=== PATIENT | female | born 1980 | race American Indian/Alaskan Native ===

== ENCOUNTER 2017-03-18 08:21 | Emergency (ER) | payer MEDICAID ==
[2017-03-18] MEDS ORDERED: ROCEPHIN IM ONE (10:02)
[2017-03-18] MEDS ORDERED: ZITHROMAX PO ONE (10:02)
[2017-03-18] MEDS ORDERED: XYLOCAINE 1% MPF 5 mL INFILTRATI ONE (10:02)
--- NOTE | 2017-03-18 10:06 | Emergency Department Report ---
ED Female HPI - General Chief complaint: Urogenital-Female Stated complaint: CHECK FOR STD Time Seen by Provider: 03/18/17 10:02 Source: patient Mode of arrival: Ambulatory Limitations: No Limitations - History of Present Illness Initial comments: Patient is a 37-year-old [place] female who presents for STD exposure requesting prophylactic treatment for same patient denies symptoms at this time , states Homer positive for GC last unprotected sex 3 days ago last menstrual period 3 weeks ago. - Related Data Previous Rx's Medication Instructions Recorded Last Taken Type metroNIDAZOLE [Flagyl] 500 mg PO Q12HR #14 tab 03/18/17 Unknown Rx Allergies Allergy/AdvReac Type Severity Reaction Status Date / Time No Known Allergies Allergy Unverified 03/18/17 08:32 ED Review of Systems ROS: Stated complaint: CHECK FOR STD Other details as noted in HPI Constitutional: denies: chills, fever Eyes: denies: eye pain, eye discharge, vision change ENT: denies: ear pain, throat pain Respiratory: denies: cough, shortness of breath, wheezing Cardiovascular: denies: chest pain, palpitations Endocrine: no symptoms reported Gastrointestinal: denies: abdominal pain, nausea, diarrhea Genitourinary: denies: urgency, dysuria, discharge Musculoskeletal: denies: back pain, joint swelling, arthralgia Skin: denies: rash, lesions Neurological: denies: headache, weakness, paresthesias Psychiatric: denies: anxiety, depression Hematological/Lymphatic: denies: easy bleeding, easy bruising ED Past Medical Hx - Past Medical History Previous Medical History?: No - Surgical History Past Surgical History?: Yes Additional Surgical History: x 1, Right knee arthroscopy - Social History Smoking Status: Current Some Day Smoker Substance Use Type: Alcohol, Marijuana - Medications Home Medications: Home Medications Medication Instructions Recorded Confirmed Last Taken Type metroNIDAZOLE [Flagyl] 500 mg PO Q12HR #14 tab 03/18/17 Unknown Rx ED Physical Exam - General Limitations: No Limitations General appearance: alert, in no apparent distress - Head Head exam: Present: atraumatic, normocephalic - Eye Eye exam: Present: normal appearance - ENT ENT exam: Present: mucous membranes moist - Neck Neck exam: Present: normal inspection - Respiratory Respiratory exam: Present: normal lung sounds bilaterally. Absent: respiratory distress - Cardiovascular Cardiovascular Exam: Present: regular rate, normal rhythm. Absent: systolic murmur, diastolic murmur, rubs, gallop - GI/Abdominal GI/Abdominal exam: Present: soft, normal bowel sounds - Rectal Rectal exam: Present: deferred - Extremities Exam Extremities exam: Present: normal inspection - Back Exam Back exam: Present: normal inspection - Neurological Exam Neurological exam: Present: alert, oriented X3 - Psychiatric Psychiatric exam: Present: normal affect, normal mood - Skin Skin exam: Present: warm, dry, intact, normal color. Absent: rash ED Course Vital Signs 03/18/17 08:32 Temperature 98.8 F Pulse Rate 71 Respiratory 18 Rate Blood Pressure 115/75 O2 Sat by Pulse 99 Oximetry ED Medical Decision Making - Medical Decision Making Patient presents for STD exposure requesting prophylactic treatment for STD patient denies symptoms STD treatment provided patient will follow up with health department for HIV screening patient will follow with PCP as needed Critical care attestation.: If time is entered above; I have spent that time in minutes in the direct care of this critically ill patient, excluding procedure time. ED Disposition Clinical Impression: Exposure to STD Disposition: DC-01 TO HOME OR SELFCARE Is pt being admited?: No Does the pt Need Aspirin: No Condition: Good Instructions: Sexually Transmitted Diseases (ED) Prescriptions: metroNIDAZOLE [Flagyl] 500 mg PO Q12HR #14 tab Referrals: CHANCE BALDWIN MD [Primary Care Provider] - 3-5 Days Forms: Work/School Release Form(ED) Time of Disposition: 10:06
[2017-03-18 10:23] LABS: Bacteria,Urine 1+ /HPF (Negative); Bilirubin,Urine NEG (Negative); Blood,Urine NEG (Negative); Color,Urine Yellow (Yellow); Mucus,Urine 1+ /HPF; Nitrite,Urine NEG (Negative); Protein,Urine <15 mg/dL mg/dL (Negative); Urobilinogen,Urine < 2.0 mg/dL (<2.0)
[2017-03-18 10:26] LABS: HCG Qualitative,Urine Negative (Negative)
[2017-03-18 10:40] VITALS: BP 120/76
== END 2017-03-18 10:39 | disposition home or self-care (01) ==
LOC: ED 08:21
DX: Z20.2 Contact with and (suspected) exposure to infections with a predominantly sexual mode of transmission (principal); F12.10 Cannabis abuse, uncomplicated; F17.200 Nicotine dependence, unspecified, uncomplicated
CPT/HCPCS: 81001; 81025; 96372; 99283; J0696

== ENCOUNTER 2017-11-12 11:46 | Outpatient (CLI) | payer MEDICAID ==
[2017-11-12 12:15] VITALS: BP 110/59
[2017-11-12] MEDS ORDERED: LACTATED RINGERS 500 ML IV ONE (12:30)
[2017-11-12] MEDS ORDERED: NITRATEST PAPER MC NR (12:30)
== END 2017-11-12 13:34 | disposition home or self-care (01) ==
LOC: TRG 11:46
PROVIDERS: ATTEND Obstetrics & Gynecology
DX: O47.02 False labor before 37 completed weeks of gestation, second trimester (principal); Z3A.21 21 weeks gestation of pregnancy
CPT/HCPCS: 59025

== ENCOUNTER 2017-11-30 04:14 | Outpatient (CLI) | payer MEDICAID ==
[2017-11-30] MEDS ORDERED: LACTATED RINGERS 1,000 ML IV ONE (04:39)
[2017-11-30 06:33] LABS: Bilirubin,Urine NEG (Negative); Blood,Urine NEG (Negative); Calcium Oxalate Crystals,Urine 1+; Color,Urine Yellow (Yellow); Mucus,Urine FEW /HPF; Protein,Urine <15 mg/dL mg/dL (Negative); Urobilinogen,Urine < 2.0 mg/dL (<2.0)
[2017-11-30] MEDS ORDERED: PERCOCET 5/325 PO ONE (06:36)
[2017-11-30 08:34] VITALS: BP 113/66
[2017-11-30] MEDS ORDERED: NACL 0.9% IV ONE (09:54)
[2017-11-30] MEDS ORDERED: XYLOCAINE 1% MPF 5 mL INFILTRATI ONE (09:54)
[2017-11-30] MEDS ORDERED: ROCEPHIN IV ONE (09:54)
[2017-11-30] MEDS ORDERED: ROCEPHIN/NS 1 GM/50 ML 1 GM/50 ML BAG IV ONE (10:00)
[2017-11-30] MEDS ORDERED: LACTATED RINGERS 1,000 ML ONE (10:48)
[2017-11-30] MEDS ORDERED: BENADRYL IV ONE (11:30)
[2017-11-30] MEDS ORDERED: BENADRYL ONE (11:58)
== END 2017-11-30 12:44 | disposition home or self-care (01) ==
LOC: TRG 04:14
PROVIDERS: ATTEND Obstetrics & Gynecology
DX: O47.02 False labor before 37 completed weeks of gestation, second trimester (principal); Z3A.24 24 weeks gestation of pregnancy
CPT/HCPCS: 36415; 81001; 82731; J0696; J1200; J7120; 59025